=== PATIENT | male | born 1950 | race African-American/Black ===

== ENCOUNTER → 2021-12-28 | Outpatient (CLI) | payer MEDICARE | END | disposition home or self-care (01) | LOC: US 08:35 | PROVIDERS: ATTEND Internal Medicine Gastroenterology | DX: N28.1 Cyst of kidney, acquired (principal); K86.2 Cyst of pancreas; R10.9 Unspecified abdominal pain; Z90.49 Acquired absence of other specified parts of digestive tract | CPT/HCPCS: 76700 ==